=== PATIENT | female | born 1950 | race Two or more races ===

== ENCOUNTER 2018-05-19 17:13 | Inpatient (IN) | payer MEDICARE, OTHER ==
[~2018-05-19] VITALS: Ht 160 cm; Wt 81.2 kg
[2018-05-19] MEDS ORDERED: VANCOMYCIN 1 G PREMIX 200 ML IV ONE (21:15)
[2018-05-19] MEDS ORDERED: SODIUM CHLORIDE 0.9% 1000ML BAG (SEPSIS BOLUS) IV ONE (21:15)
[2018-05-19] MEDS ORDERED: PIPERACILLIN/TAZ 3.375G PREMIX 50 ML IV ONE (21:15)
[2018-05-19] MEDS ORDERED: PANTOPRAZOLE SODIUM 40 MG/VIAL IV ONE (21:15)
[2018-05-19 22:13] LABS: CHLORIDE 95 mEq/L (98-107)
[2018-05-19 22:14] LABS: BASOPHILS % 0.5 % (0.0-2.0); EOSINOPHILS % 1.4 % (0.0-5.0); HEMATOCRIT. 31.8 % (36.0-48.0); HEMOGLOBIN. 10.9 g/dL (12.0-16.0); INR 1.1; LYMPHOCYTES % 9.8 % (20.0-50.0); MEAN CORPUSCULAR HEMOGLOBIN 29.1 pg (28.0-32.0); MEAN CORPUSCULAR VOLUME 84.8 fL (81.0-99.0); MEAN PLATELET VOLUME 8.3 fl (7.4-10.4); NEUTROPHILS % 81.3 % (40.0-76.0); PARTIAL THROMBOPLASTIN TIME 28.2 sec (23.4-31.0); PLATELET 297 x1000/uL (130-400); PROTHROMBIN TIME 11.4 sec (9.1-11.1); RED BLOOD CELL COUNT 3.75 mill/uL (4.2-5.4); RED CELL DISTRIBUTION WIDTH 14.6 % (11.6-14.6)
[2018-05-19 23:06] LABS: CLARITY URINE CLEAR (CLEAR); COLOR URINE YELLOW (YELLOW); KETONES URINE NEGATIVE (NEGATIVE); LEUKOCYTE ESTERASE URINE 1+ (NEGATIVE); NITRITE URINE NEGATIVE (NEGATIVE); OCCULT BLOOD URINE NEGATIVE (NEGATIVE); PH URINE 7.5 (4.5-8.0); PROTEIN URINE NEGATIVE (NEGATIVE); SPECIFIC GRAVITY URINE 1.013 (1.005-1.030)
[2018-05-20] MEDS ORDERED: CLONIDINE 0.1MG TABLET PO PRN (09:15)
[2018-05-20] MEDS ORDERED: ACETAMINOPHEN 325MG TABLET PO PRN (09:15)
[2018-05-20] MEDS ORDERED: ONDANSETRON HCL 4MG/2ML INJ IV PRN (09:15)
[2018-05-20 12:26] VITALS: BP 138/81
[2018-05-20 13:00] VITALS: BP 138/81
[2018-05-20] MEDS ORDERED: KEPP500 GT (13:38)
[2018-05-20] MEDS ORDERED: METF-815 GT (13:38)
[2018-05-20] MEDS ORDERED: MEMA5TAB7 GT (13:38)
[2018-05-20] MEDS ORDERED: LOPHC2 GT (13:38)
[2018-05-20] MEDS ORDERED: BENA10TA10 GT (13:38)
[2018-05-20] MEDS ORDERED: LEVE500T19 GT (13:38)
[2018-05-20] MEDS ORDERED: BACL-141 PO (13:38)
[2018-05-20] MEDS ORDERED: DEXTROSE 50% WATER 50ML SYRINGE IV PRN (14:00)
[2018-05-20 16:00] VITALS: BP 125/79
[2018-05-20] MEDS ORDERED: VANCOMYCIN 1 G PREMIX 200 ML IV SCH (16:00)
[2018-05-20] MEDS: MEMANTINE HCL 5MG TABLET GT SCH (16:45)
[2018-05-20] MEDS: BACLOFEN 10MG TABLET PO SCH (16:45)
[2018-05-20] MEDS: BENAZEPRIL 10MG TABLET GT SCH (16:45)
[2018-05-20] MEDS: HYDROCHLOROTHIAZIDE 12.5MG CAPSULE GT SCH (16:45)
[2018-05-20] MEDS ORDERED: LEVETIRACETAM 500MG TABLET GT SCH (16:45)
[2018-05-20] MEDS: BLOOD SUGAR DIAGNOSTIC STRIP TEST SCH ×2 (17:20→21:00)
[2018-05-20] MEDS: METFORMIN HCL 500MG TABLET GT SCH (17:39)
[2018-05-20] MEDS: INSULIN LISPRO 100 UNITS/ML SUBCUT SCH ×2 (17:50→21:00)
[2018-05-20] MEDS: DEXT 5%/0.45% NACL 1000ML 1,000 ML IV SCH (18:23)
[2018-05-20 20:09] VITALS: BP 123/57
[2018-05-20] MEDS: LEVETIRACETAM 500 MG in SODIUM CHLORIDE 0.9% 100 ML IV SCH (22:16)
[2018-05-20] MEDS: METOPROLOL TARTRATE 25MG TABLET GT SCH (22:16)
[2018-05-21 00:07] VITALS: BP 119/60
[2018-05-21 04:00] VITALS: BP 116/65
[2018-05-21] MEDS: DEXT 5%/0.45% NACL 1000ML 1,000 ML IV SCH ×3 (04:10→23:52)
[2018-05-21] MEDS: BLOOD SUGAR DIAGNOSTIC STRIP TEST SCH ×4 (06:22→20:19)
[2018-05-21] MEDS: PANTOPRAZOLE 40MG DR TABLET PO SCH (06:22)
[2018-05-21] MEDS: VANCOMYCIN 1 G PREMIX 200 ML IV SCH ×2 (06:22→23:52)
[2018-05-21 07:40] LABS: BASOPHILS % 0.4 % (0.0-2.0); EOSINOPHILS % 2.7 % (0.0-5.0); HEMATOCRIT. 29.7 % (36.0-48.0); HEMOGLOBIN. 10.1 g/dL (12.0-16.0); LYMPHOCYTES % 20.9 % (20.0-50.0); MEAN CORPUSCULAR HEMOGLOBIN 28.9 pg (28.0-32.0); MEAN CORPUSCULAR VOLUME 84.8 fL (81.0-99.0); MONOCYTES % 8.9 % (2.0-8.0); NEUTROPHILS % 67.1 % (40.0-76.0); PLATELET 274 x1000/uL (130-400); RED CELL DISTRIBUTION WIDTH 14.5 % (11.6-14.6)
[2018-05-21] MEDS: INSULIN LISPRO 100 UNITS/ML SUBCUT SCH ×4 (07:50→20:50)
[2018-05-21] MEDS: METFORMIN HCL 500MG TABLET GT SCH ×2 (07:50→17:50)
[2018-05-21 08:00] VITALS: BP 114/59
[2018-05-21] MEDS: METOPROLOL TARTRATE 25MG TABLET GT SCH ×2 (09:00→20:19)
[2018-05-21] MEDS: BACLOFEN 10MG TABLET PO SCH (09:00)
[2018-05-21] MEDS: HYDROCHLOROTHIAZIDE 12.5MG CAPSULE GT SCH (09:00)
[2018-05-21] MEDS: MEMANTINE HCL 5MG TABLET GT SCH (09:00)
[2018-05-21] MEDS: BENAZEPRIL 10MG TABLET GT SCH (09:00)
[2018-05-21] MEDS: LEVETIRACETAM 500 MG in SODIUM CHLORIDE 0.9% 100 ML IV SCH ×2 (09:08→21:13)
[2018-05-21 09:48] LABS: CHLORIDE 102 mEq/L (98-107)
[2018-05-21 11:53] VITALS: BP 117/58
[2018-05-21] MEDS ORDERED: POTASSIUM CHLORIDE INJ 40 MEQ in DEXT 5% WATER 250 ML IV ONE (12:00)
[2018-05-21] MEDS ORDERED: SODIUM CHLORIDE 0.9% 10ML VIAL ONE (15:15)
[2018-05-21] MEDS ORDERED: FENTANYL CITRATE/PF 50MCG/ML 2ML VIAL IV PRN (16:10)
[2018-05-21] MEDS ORDERED: FENTANYL CITRATE/PF 50MCG/ML 2ML VIAL ONE (16:13)
[2018-05-21] MEDS ORDERED: MIDAZOLAM HCL 5 MG/5 ML VIAL ONE (16:13)
[2018-05-21] MEDS ORDERED: MIDAZOLAM HCL 5 MG/5 ML VIAL IV PRN (16:15)
[2018-05-21] MEDS: METRONIDAZOLE 500 MG PREMIX 100 ML IV SCH (18:04)
[2018-05-21 18:27] VITALS: BP 121/60
[2018-05-21 20:00] VITALS: BP 155/72
[2018-05-22 00:05] VITALS: BP 161/77
[2018-05-22] MEDS: METRONIDAZOLE 500 MG PREMIX 100 ML IV SCH ×3 (02:10→18:59)
[2018-05-22 04:00] VITALS: BP 155/83
[2018-05-22] MEDS: BLOOD SUGAR DIAGNOSTIC STRIP TEST SCH ×4 (06:35→21:33)
[2018-05-22] MEDS: PANTOPRAZOLE 40MG DR TABLET PO SCH (06:35)
[2018-05-22 07:03] LABS: HEMATOCRIT. 32.2 % (36.0-48.0); HEMOGLOBIN. 10.8 g/dL (12.0-16.0); MEAN CORPUSCULAR HEMOGLOBIN 28.4 pg (28.0-32.0); MEAN CORPUSCULAR VOLUME 84.6 fL (81.0-99.0); PLATELET 296 x1000/uL (130-400); RED BLOOD CELL COUNT 3.81 mill/uL (4.2-5.4); RED CELL DISTRIBUTION WIDTH 14.3 % (11.6-14.6)
[2018-05-22] MEDS: INSULIN LISPRO 100 UNITS/ML SUBCUT SCH ×4 (07:50→21:00)
[2018-05-22] MEDS: METFORMIN HCL 500MG TABLET GT SCH ×2 (07:50→17:50)
[2018-05-22 08:00] VITALS: BP 153/71
[2018-05-22 08:39] LABS: CHLORIDE 99 mEq/L (98-107)
[2018-05-22] MEDS: HYDROCHLOROTHIAZIDE 12.5MG CAPSULE GT SCH (09:00)
[2018-05-22] MEDS: METOPROLOL TARTRATE 25MG TABLET GT SCH ×3 (09:00→21:34)
[2018-05-22] MEDS: BENAZEPRIL 10MG TABLET GT SCH (09:00)
[2018-05-22] MEDS: BACLOFEN 10MG TABLET PO SCH (09:00)
[2018-05-22] MEDS: MEMANTINE HCL 5MG TABLET GT SCH (09:00)
[2018-05-22] MEDS ORDERED: POTASSIUM CHLORIDE 20MEQ TABLET SR PO NR (09:45)
[2018-05-22] MEDS: DEXT 5%/0.45% NACL 1000ML 1,000 ML IV SCH ×2 (11:00→21:32)
[2018-05-22] MEDS: LEVETIRACETAM 500 MG in SODIUM CHLORIDE 0.9% 100 ML IV SCH ×2 (11:00→21:32)
[2018-05-22 12:00] VITALS: BP 145/71
[2018-05-22 13:16] LABS: PLATELET ESTIMATE NORMAL
[2018-05-22] MEDS ORDERED: VANCOMYCIN 1 G PREMIX 200 ML IV SCH (14:00)
[2018-05-22 16:00] VITALS: BP 109/67
[2018-05-22] MEDS ORDERED: KCL 20MEQ/100ML PREMIX 100 ML IV NR (19:30)
[2018-05-22 20:00] VITALS: BP 106/59
[2018-05-23] VITALS (7 sets, daily range): BP systolic 110–132; BP diastolic 46–68
[2018-05-23] MEDS: DEXT 5%/0.45% NACL 1000ML 1,000 ML IV SCH ×2 (05:30→14:18)
[2018-05-23 07:13] LABS: BASOPHILS % 0.1 % (0.0-2.0); EOSINOPHILS % 1.4 % (0.0-5.0); HEMOGLOBIN. 10.4 g/dL (12.0-16.0); LYMPHOCYTES % 16.5 % (20.0-50.0); MEAN CORPUSCULAR HEMOGLOBIN 28.6 pg (28.0-32.0); MEAN CORPUSCULAR VOLUME 84.7 fL (81.0-99.0); MEAN PLATELET VOLUME 7.7 fl (7.4-10.4); PLATELET 293 x1000/uL (130-400); RED BLOOD CELL COUNT 3.66 mill/uL (4.2-5.4); RED CELL DISTRIBUTION WIDTH 14.6 % (11.6-14.6)
[2018-05-23] MEDS: BLOOD SUGAR DIAGNOSTIC STRIP TEST SCH ×4 (07:20→21:00)
[2018-05-23 07:30] LABS: CHLORIDE 101 mEq/L (98-107)
[2018-05-23] MEDS: METFORMIN HCL 500MG TABLET GT SCH ×2 (08:40→17:37)
[2018-05-23] MEDS: INSULIN LISPRO 100 UNITS/ML SUBCUT SCH ×4 (08:40→21:00)
[2018-05-23] MEDS: METOPROLOL TARTRATE 25MG TABLET GT SCH ×2 (08:40→22:04)
[2018-05-23] MEDS: BACLOFEN 10MG TABLET PO SCH (08:40)
[2018-05-23] MEDS: HYDROCHLOROTHIAZIDE 12.5MG CAPSULE GT SCH (08:41)
[2018-05-23] MEDS: MEMANTINE HCL 5MG TABLET GT SCH (08:41)
[2018-05-23] MEDS: BENAZEPRIL 10MG TABLET GT SCH (08:41)
[2018-05-23] MEDS: PANTOPRAZOLE 40MG DR TABLET PO SCH (08:41)
[2018-05-23] MEDS: LEVETIRACETAM 500 MG in SODIUM CHLORIDE 0.9% 100 ML IV SCH ×2 (08:42→22:04)
[2018-05-23] MEDS ORDERED: POTASSIUM CHLORIDE 20MEQ/PACKET PO NR (15:30)
[2018-05-24] VITALS: BP 100/46
[2018-05-24] MEDS: DEXT 5%/0.45% NACL 1000ML 1,000 ML IV SCH ×2 (01:53→14:19)
[2018-05-24 04:00] VITALS: BP 99/46
[2018-05-24] MEDS: PANTOPRAZOLE 40MG DR TABLET PO SCH (05:55)
[2018-05-24] MEDS: BLOOD SUGAR DIAGNOSTIC STRIP TEST SCH ×2 (06:02→12:20)
[2018-05-24 08:00] VITALS: BP 133/66
[2018-05-24 09:16] LABS: BASOPHILS % 0.2 % (0.0-2.0); EOSINOPHILS % 3.4 % (0.0-5.0); HEMATOCRIT. 28.3 % (36.0-48.0); HEMOGLOBIN. 9.7 g/dL (12.0-16.0); LYMPHOCYTES % 19.9 % (20.0-50.0); MEAN CORPUSCULAR HEMOGLOBIN 28.6 pg (28.0-32.0); MEAN CORPUSCULAR VOLUME 83.8 fL (81.0-99.0); MEAN PLATELET VOLUME 7.6 fl (7.4-10.4); MONOCYTES % 8.9 % (2.0-8.0); NEUTROPHILS % 67.6 % (40.0-76.0); PLATELET 291 x1000/uL (130-400); RED BLOOD CELL COUNT 3.38 mill/uL (4.2-5.4); RED CELL DISTRIBUTION WIDTH 14.6 % (11.6-14.6)
[2018-05-24] MEDS: LEVETIRACETAM 500 MG in SODIUM CHLORIDE 0.9% 100 ML IV SCH (09:19)
[2018-05-24] MEDS: BENAZEPRIL 10MG TABLET GT SCH (09:19)
[2018-05-24] MEDS: METFORMIN HCL 500MG TABLET GT SCH (09:20)
[2018-05-24] MEDS: METOPROLOL TARTRATE 25MG TABLET GT SCH (09:20)
[2018-05-24] MEDS: INSULIN LISPRO 100 UNITS/ML SUBCUT SCH ×2 (09:20→12:50)
[2018-05-24] MEDS: MEMANTINE HCL 5MG TABLET GT SCH (09:20)
[2018-05-24] MEDS: BACLOFEN 10MG TABLET PO SCH (09:20)
[2018-05-24] MEDS: HYDROCHLOROTHIAZIDE 12.5MG CAPSULE GT SCH (09:22)
[2018-05-24 10:13] LABS: CHLORIDE 99 mEq/L (98-107)
[2018-05-24] MEDS ORDERED: POTASSIUM CHLORIDE 20MEQ TABLET SR PO NR (11:00)
[2018-05-24 12:00] VITALS: BP 113/70
[2018-05-24 12:33] VITALS: BP 133/64
[2018-05-24] MEDS ORDERED: AMOXICILLIN/POTASSIUM CLAVULANATE 875/125MG TAB GT SCH (14:00)
[2018-05-24 15:22] VITALS: BP 125/66
== END 2018-05-24 15:30 | disposition home or self-care (01) | DRG 919 ==
LOC: ER 17:13 → 6WST 22:56 → ENRESERV 05-20 10:54
PROVIDERS: ADMIT Internal Medicine; ATTEND Internal Medicine
PROC: 0DH64UZ Insertion of Feeding Device into Stomach, Percutaneous Endoscopic Approach (ICD-10-PCS; principal; 2018-05-21)
PROC: 0DP6XUZ Removal of Feeding Device from Stomach, External Approach (ICD-10-PCS; 2018-05-21)
DX: T85.528A Displacement of other gastrointestinal prosthetic devices, implants and grafts, initial encounter (principal); A41.9 Sepsis, unspecified organism; N39.0 Urinary tract infection, site not specified; E44.0 Moderate protein-calorie malnutrition; E87.1 Hypo-osmolality and hyponatremia; L02.211 Cutaneous abscess of abdominal wall; L03.311 Cellulitis of abdominal wall; K94.21 Gastrostomy hemorrhage; G30.9 Alzheimer's disease, unspecified; F02.80 Dementia in other diseases classified elsewhere, unspecified severity, without behavioral disturbance, psychotic disturbance, mood disturbance, and anxiety; I10 Essential (primary) hypertension; R13.10 Dysphagia, unspecified; E87.8 Other disorders of electrolyte and fluid balance, not elsewhere classified; G40.909 Epilepsy, unspecified, not intractable, without status epilepticus; N61.0 Mastitis without abscess; B36.9 Superficial mycosis, unspecified; E11.65 Type 2 diabetes mellitus with hyperglycemia; Z51.5 Encounter for palliative care; D63.8 Anemia in other chronic diseases classified elsewhere; Y83.8 Other surgical procedures as the cause of abnormal reaction of the patient, or of later complication, without mention of misadventure at the time of the procedure; Y73.8 Miscellaneous gastroenterology and urology devices associated with adverse incidents, not elsewhere classified; Y92.89 Other specified places as the place of occurrence of the external cause; Z68.31 Body mass index [BMI] 31.0-31.9, adult
CPT/HCPCS: 36415; 71045; 74018; 76705; 80048; 80202; 82962; 83036; 83605; 83880; 84145; 84484; 85007; 85027; 87070; 87077; 87186; 93005; 93970; 96365; 96366; 96368; 96375; 99152; 99285; A6261; C9113; J1815; J1953; J2250; J2543; J3010; J3370; J3480; J3490; J7030; J7050; J7060; A4315; G0500